=== PATIENT | male | born 1955 | race Caucasian/White ===

== ENCOUNTER 2021-12-17 12:33 | Inpatient (IN) | payer MEDICARE, OTHER ==
[~2021-12-17] VITALS: Ht 175.3 cm; Wt 86.2 kg
[~2021-12-17 12:33] MED LIST: ACETAMINOPHEN500 M1 PO; ADVIL COLD & S1 EACH PO; ADVIL COLD/SINUS PO; AMARYL PO; AMARYL2 MG PO; AMOX TR-K CLV1 EAC3 PO; ATORVASTATIN CA20 MG PO; BASAGLAR K100 UNIT/1 SC; BENZTROPINE MESY1 MG PO; BUPROPION XL150 MG PO; CLARITIN10 MG PO; FLOMAX0.4 MG PO; FLORASTOR250 MG PO; GLUCOPHAGE500 MG PO; LEVAQUIN750 MG PO; LEXAPRO20 MG PO; LIDOCAINE 4% TOP; MILK OF MAGNESIUM PO; NEOSPORIN OIN14.2 GM TOP; PREDNISONE 20MG20 MG PO; PRINIVIL10 MG PO; RISPERDAL 1MG TA1 MG PO; ROBITUSSIN DM10 ML PO; TRAZODONE 50MG50 MG PO; TYLENOL500 MG PO; VICTOZA 2-0.6 MG/0.1 SC
[2021-12-17 14:17] LABS: BASOPHIL 0.5 % (0-2); EOSINOPHIL 2.6 % (0-7); HCT 41.7 % (42.0-52.0); HGB 14.5 g/dl (13.2-18.0); MCH 31.9 pg (25.0-31.0); MCHC 34.8 g/dL (32.0-36.0); MCV 91.9 fL (78.0-100.0); MPV 9.6 fL (6.0-9.5); NEUTROPHIL 79.3 % (41-80); NRBC 0; PLT 179 K/uL (150-400); RBC 4.54 M/uL (4.70-6.00); RDW 13.2 % (11.5-14.0); WBC 17.2 K/uL (4.0-10.5)
[2021-12-17 14:43] LABS: ALBUMIN 4.2 g/dL (3.4-5.0); BILIRUBIN - TOTAL 0.5 mg/dL (0.2-1.0); BUN/CREAT RATIO (CALC) 19.3 RATIO; C-REACTIVE PROTEIN 7.7 mg/dL (<=0.90); CREATININE 1.14 mg/dL (0.67-1.17); GLOBULIN (CALCULATION) 3.6 g/dL; POTASSIUM 4.9 mmol/L (3.5-5.1); TOTAL PROTEIN 7.8 g/dL (6.4-8.2)
[2021-12-17 14:52] LABS: LACTIC ACID 3.2 mmol/L (0.4-1.9)
[2021-12-17] MEDS ORDERED: BASAGLAR K100 UNIT/1 SC (19:22)
[2021-12-18 06:04] LABS: BASOPHIL 0.9 % (0-2); EOSINOPHIL 3.9 % (0-7); HCT 40.2 % (42.0-52.0); HGB 13.7 g/dl (13.2-18.0); MCH 31.9 pg (25.0-31.0); MCHC 34.1 g/dL (32.0-36.0); MCV 93.5 fL (78.0-100.0); MONOCYTE 8.8 % (0-12); MPV 9.9 fL (6.0-9.5); NEUTROPHIL 71.8 % (41-80); NRBC 0; PLT 171 K/uL (150-400); RDW 13.3 % (11.5-14.0); WBC 12.6 K/uL (4.0-10.5)
[2021-12-18 07:04] LABS: BUN/CREAT RATIO (CALC) 19.3 RATIO; CREATININE 0.88 mg/dL (0.67-1.17); POTASSIUM 4.1 mmol/L (3.5-5.1)
--- NOTE | 2021-12-18 14:22 | NUR ---
12/18/21 Mr. Mcintosh lives at [facility]. The residential treatment program is staffed . He attends a community workshop in the daytime. Shayla Martin, sister, is his legal guardian. Shahnaz Rose is the staff house manager. - Mr. Mcintosh does not use any DME. - The [facility] is unable to administer IV medication even with the support of HH. They can provide transportation for outpatient IV antibiotics if needed.
[2021-12-19 03:45] LABS: BASOPHIL 1.3 % (0-2); EOSINOPHIL 5.5 % (0-7); HCT 37.7 % (42.0-52.0); HGB 12.9 g/dl (13.2-18.0); LYMPHOCYTE 15.4 % (15-48); MCH 32.6 pg (25.0-31.0); MCHC 34.2 g/dL (32.0-36.0); MCV 95.2 fL (78.0-100.0); MONOCYTE 9.5 % (0-12); MPV 9.9 fL (6.0-9.5); NEUTROPHIL 67.4 % (41-80); NRBC 0; PLT 174 K/uL (150-400); RBC 3.96 M/uL (4.70-6.00); RDW 13.3 % (11.5-14.0); WBC 11.9 K/uL (4.0-10.5)
[2021-12-19 04:20] LABS: BUN/CREAT RATIO (CALC) 23.4 RATIO; C-REACTIVE PROTEIN 11.3 mg/dL (<=0.90); CREATININE 0.94 mg/dL (0.67-1.17); POTASSIUM 4.5 mmol/L (3.5-5.1)
== END 2021-12-19 14:40 | disposition other institution (70) | DRG 867 ==
LOC: FER 12:33 → FMS 16:39
PROVIDERS: Physician Assistant; ADMIT Allergy & Immunology Allergy
DX: T80.29XA Infection following other infusion, transfusion and therapeutic injection, initial encounter (principal); A41.9 Sepsis, unspecified organism; L02.511 Cutaneous abscess of right hand; L03.113 Cellulitis of right upper limb; I10 Essential (primary) hypertension; E78.5 Hyperlipidemia, unspecified; E11.65 Type 2 diabetes mellitus with hyperglycemia; F41.9 Anxiety disorder, unspecified; G31.84 Mild cognitive impairment of uncertain or unknown etiology; Z79.4 Long term (current) use of insulin; Z98.1 Arthrodesis status; Z98.890 Other specified postprocedural states; Z88.5 Allergy status to narcotic agent; Z88.8 Allergy status to other drugs, medicaments and biological substances; Z79.84 Long term (current) use of oral hypoglycemic drugs; Z79.899 Other long term (current) drug therapy; Z82.49 Family history of ischemic heart disease and other diseases of the circulatory system
CPT/HCPCS: 36415; 73130; 73200; 73220; 80048; 80053; 80202; 83036; 83605; 84145; 85025; 86140; 87040; A9579; J0696; J1650; J1815; J2543; J3370; J7030; J7040; J7050; J7120